=== PATIENT | male | born 1935 | race Caucasian/White ===

== ENCOUNTER 2016-09-07 13:03 | Day surgery (SDC) | payer OTHER, MEDICARE ==
[~2016-09-07] VITALS: Ht 180.3 cm; Wt 73.5 kg
[~2016-09-07 13:03] MED LIST: ANTIVERT25 MG PO; CARBIDOPA/LEVO1 EACH PO; CELEXA40 MG PO; DESYREL100 MG PO; DIOVAN HCT 11 TABLET PO; DIOVAN160 MG PO; ELIQUIS5 MG PO; HYDROCHLOROTHIA25 MG PO; LOPRESSOR50 MG PO; VIAGRA100 MG PO
[2016-09-07 14:31] LABS: HEMATOCRIT 40.9 % (38.0-50.0); MCH 32.8 PG (29.0-34.0); MCV 99.5 FL (86-99); RBC DIS.WIDTH-CV 12.6 % (11.8-14.6); RBC DIS.WIDTH-SD 46.1 % (39-53); RED BLOOD COUNT 4.11 M/uL (4.00-5.50); WHITE BLOOD COUNT 6.2 K/uL (4.1-10.2)
[2016-09-07 14:42] LABS: ANION GAP 6 MEQ/L (2-14); CHLORIDE 104 MEQ/L (99-109); POTASSIUM 3.6 MEQ/L (3.7-5.4); SAMPLE HEMOLYSIS CHECK 0; SAMPLE ICTERIC CHECK 0; SAMPLE LIPEMIA CHECK 0; SODIUM 142 MEQ/L (136-147)
[2016-09-07 14:48] LABS: GFR ESTIMATE (CALCULATED) > 59 mL/min/; GLUCOSE 103 mg/dL (70-99); UREA NITROGEN (BUN) 18 mg/dL (9-23)
[2016-09-07 15:06] LABS: MEAN PLAT.VOLUME 11.4 uM^3 (9.0-12.4); PLAT.SUFFICIENCY ADEQUATE
[2016-09-07 15:07] LABS: PLATELET COUNT 162 K/uL (156-360)
== END 2016-09-07 15:33 | disposition home or self-care (01) ==
LOC: PAIN 13:03 → SDC 14:00 → PAIN 15:33
PROVIDERS: Anesthesiology
DX: M47.26 Other spondylosis with radiculopathy, lumbar region (principal); M25.512 Pain in left shoulder; G20 Parkinson's disease; M79.1 Myalgia; F17.210 Nicotine dependence, cigarettes, uncomplicated; Z86.73 Personal history of transient ischemic attack (TIA), and cerebral infarction without residual deficits; Z79.891 Long term (current) use of opiate analgesic; Z95.0 Presence of cardiac pacemaker; Z79.01 Long term (current) use of anticoagulants; Z79.899 Other long term (current) drug therapy
CPT/HCPCS: 80048; 85027; J1030; J3010; S0020

== ENCOUNTER 2016-09-27 12:22 | Day surgery (SDC) | payer OTHER, MEDICARE ==
[~2016-09-27] VITALS: Ht 180.3 cm; Wt 72.6 kg
== END 2016-09-27 14:33 | disposition home or self-care (01) ==
LOC: PAIN 12:22
DX: M47.26 Other spondylosis with radiculopathy, lumbar region (principal); F41.9 Anxiety disorder, unspecified; M79.1 Myalgia; I48.91 Unspecified atrial fibrillation; Z95.0 Presence of cardiac pacemaker; G89.29 Other chronic pain; M19.90 Unspecified osteoarthritis, unspecified site; F17.200 Nicotine dependence, unspecified, uncomplicated
CPT/HCPCS: J1030; J2250; J3010; S0020

== ENCOUNTER 2016-11-01 12:37 | Day surgery (SDC) | payer OTHER, MEDICARE ==
[~2016-11-01] VITALS: Ht 180.3 cm; Wt 73.5 kg
[~2016-11-01 12:37] MED LIST changes: +CLINORIL200 MG PO; +NEURONTIN300 MG PO; +ULTRAM50 MG PO
== END 2016-11-01 14:55 | disposition home or self-care (01) ==
LOC: PAIN 12:37
DX: M47.26 Other spondylosis with radiculopathy, lumbar region (principal); M54.5 Low back pain; M25.512 Pain in left shoulder; G89.29 Other chronic pain; I10 Essential (primary) hypertension; I48.91 Unspecified atrial fibrillation; M79.1 Myalgia; Z95.0 Presence of cardiac pacemaker; F17.210 Nicotine dependence, cigarettes, uncomplicated; Z79.891 Long term (current) use of opiate analgesic
CPT/HCPCS: J1030; J3010; S0020

== ENCOUNTER 2016-12-10 13:18 | Inpatient (IN) | payer OTHER, MEDICARE ==
[~2016-12-10] VITALS: Ht 182.9 cm; Wt 72.9 kg
[~2016-12-10 13:18] MED LIST changes: +DESYREL 150 MG150 MG PO; -DESYREL100 MG PO
[2016-12-10 14:14] LABS: EOSINOPHIL (%) 0.2 % (0-5); IMMATURE GRANULOCYTE (%) 0.5 % (0.0-0.7); IMMATURE GRANULOCYTE COUNT 0.1 K/uL; INSTRUMENT ABS NEUTROPHIL CT 9.8 K/uL; LYMPHOCYTE COUNT 1.1 K/uL (1.0-2.8); MCH 33.3 PG (29.0-34.0); MCHC 33.6 G/DL (30.0-36.0); MCV 99.2 FL (86-99); MEAN PLAT.VOLUME 11.5 uM^3 (9.0-12.4); MONOCYTE (%) 5.2 % (3-12); MONOCYTE COUNT 0.6 K/uL (0-0.8); NEUTROPHIL (%) 84.3 % (45-76); NEUTROPHIL COUNT 9.8 K/uL (1.8-6.4); PLATELET COUNT 191 K/uL (156-360); RBC DIS.WIDTH-CV 12.4 % (11.8-14.6); RBC DIS.WIDTH-SD 46.3 % (39-53); RED BLOOD COUNT 3.93 M/uL (4.00-5.50); WHITE BLOOD COUNT 11.6 K/uL (4.1-10.2)
[2016-12-10 14:19] LABS: INTER. NORMALIZED RATIO 1.5; PROTHROMBIN TIME 16.6 SEC (10.2-12.9)
[2016-12-10 14:22] LABS: CHLORIDE 103 mEq/L (99-109); POTASSIUM 4.2 mEq/L (3.7-5.4); PTT 34.5 SEC (25-37); SODIUM 141 mEq/L (136-147)
[2016-12-10 14:24] LABS: GLUCOSE 115 mg/dL (70-99)
[2016-12-10 14:25] LABS: ANION GAP 9 MEQ/L (2-14)
[2016-12-10 14:26] LABS: TOTAL BILIRUBIN 0.9 mg/dL (0.0-1.0)
[2016-12-10 14:27] LABS: ALKALINE PHOSPHATASE 46 IU/L (3-129)
[2016-12-10 14:28] LABS: GFR ESTIMATE (CALCULATED) 57 mL/min/
[2016-12-10 14:29] LABS: UREA NITROGEN (BUN) 55 mg/dL (9-23)
[2016-12-10] MEDS ORDERED: ELIQUIS5 MG PO (17:48)
[2016-12-10] MEDS ORDERED: CALCIUM 600 +1 EA12 PO (17:49)
[2016-12-10] MEDS ORDERED: VIAGRA100 MG PO (17:50)
[2016-12-10] MEDS ORDERED: ZOCOR40 MG PO (17:51)
[2016-12-10] MEDS ORDERED: FOSAMAX70 MG PO (17:53)
[2016-12-10 19:28] LABS: HEMATOCRIT 33.1 % (38.0-50.0); MCV 100.9 FL (86-99)
[2016-12-10 19:39] VITALS: BP 115/61
[2016-12-10 23:26] VITALS: BP 108/55
[2016-12-11] VITALS (7 sets, daily range): BP systolic 111–141; BP diastolic 57–74
[2016-12-11 00:36] LABS: HEMATOCRIT 31.6 % (38.0-50.0); MCV 100.3 FL (86-99)
[2016-12-11 05:50] LABS: EOSINOPHIL (%) 1.1 % (0-5); EOSINOPHIL COUNT 0.1 K/uL (0-0.3); HEMATOCRIT 30.8 % (38.0-50.0); IMMATURE GRANULOCYTE (%) 0.2 % (0.0-0.7); INSTRUMENT ABS NEUTROPHIL CT 4.2 K/uL; LYMPHOCYTE COUNT 1.6 K/uL (1.0-2.8); MCH 34.5 PG (29.0-34.0); MCHC 34.4 G/DL (30.0-36.0); MCV 100.3 FL (86-99); MEAN PLAT.VOLUME 11.7 uM^3 (9.0-12.4); MONOCYTE (%) 6.2 % (3-12); MONOCYTE COUNT 0.4 K/uL (0-0.8); NEUTROPHIL (%) 66.6 % (45-76); NEUTROPHIL COUNT 4.2 K/uL (1.8-6.4); PLATELET COUNT 163 K/uL (156-360); RBC DIS.WIDTH-CV 12.7 % (11.8-14.6); RBC DIS.WIDTH-SD 46.6 % (39-53); WHITE BLOOD COUNT 6.3 K/uL (4.1-10.2)
[2016-12-11 05:52] LABS: RED BLOOD COUNT 3.07 M/uL (4.00-5.50)
[2016-12-11 06:10] LABS: ANION GAP 5 MEQ/L (2-14); CHLORIDE 107 MEQ/L (99-109); GFR ESTIMATE (CALCULATED) > 59 mL/min/; GLUCOSE 94 mg/dL (70-99); POTASSIUM 3.8 MEQ/L (3.7-5.4); SAMPLE HEMOLYSIS CHECK 0; SAMPLE ICTERIC CHECK 0; SAMPLE LIPEMIA CHECK 0; SODIUM 144 MEQ/L (136-147); UREA NITROGEN (BUN) 44 mg/dL (9-23)
[2016-12-11 07:06] LABS: POINT-OF-CARE METER ID UU14208750
[2016-12-11 13:16] LABS: HEMATOCRIT 33.7 % (38.0-50.0); MCV 101.5 FL (86-99)
[2016-12-11 13:19] LABS: IRON 129 MCG/DL (35-150)
[2016-12-11 13:20] LABS: IMM.RETIC FRACTION 13.3 % (3-19); RETIC HGB EQUIVALENT 37.1 (28-36); RETICULOCYTE COUNT 1.4 % (0.5-1.8)
[2016-12-11 13:36] LABS: FERRITIN 120 NG/ML (22-322)
[2016-12-12 03:52] VITALS: BP 121/55
[2016-12-12 06:23] LABS: EOSINOPHIL COUNT 0.1 K/uL (0-0.3); HEMATOCRIT 31.1 % (38.0-50.0); IMMATURE GRANULOCYTE (%) 0.3 % (0.0-0.7); INSTRUMENT ABS NEUTROPHIL CT 4.7 K/uL; LYMPHOCYTE COUNT 1.6 K/uL (1.0-2.8); MCH 33.8 PG (29.0-34.0); MCHC 34.1 G/DL (30.0-36.0); MEAN PLAT.VOLUME 11.1 uM^3 (9.0-12.4); MONOCYTE (%) 7.8 % (3-12); MONOCYTE COUNT 0.5 K/uL (0-0.8); NEUTROPHIL (%) 68.1 % (45-76); NEUTROPHIL COUNT 4.7 K/uL (1.8-6.4); PLATELET COUNT 171 K/uL (156-360); RBC DIS.WIDTH-CV 12.2 % (11.8-14.6); RBC DIS.WIDTH-SD 44.1 % (39-53); RED BLOOD COUNT 3.14 M/uL (4.00-5.50); WHITE BLOOD COUNT 6.9 K/uL (4.1-10.2)
[2016-12-12 06:46] LABS: ALKALINE PHOSPHATASE 39 IU/L (3-129); ANION GAP 6 MEQ/L (2-14); CHLORIDE 106 MEQ/L (99-109); GFR ESTIMATE (CALCULATED) > 59 mL/min/; GLUCOSE 90 mg/dL (70-99); POTASSIUM 3.7 MEQ/L (3.7-5.4); SAMPLE HEMOLYSIS CHECK 0; SAMPLE ICTERIC CHECK 0; SAMPLE LIPEMIA CHECK 0; SODIUM 144 MEQ/L (136-147); TOTAL BILIRUBIN 0.8 MG/DL (0.0-1.0); UREA NITROGEN (BUN) 28 mg/dL (9-23)
[2016-12-12 07:15] VITALS: BP 126/71
[2016-12-12] MEDS ORDERED: LOPRESSOR25 MG PO (08:43)
[2016-12-12] MEDS ORDERED: NICOTINE PATCH1 EAC2 TD (08:43)
== END 2016-12-12 10:30 | disposition home or self-care (01) | DRG 378 ==
LOC: EME 13:18 → EDOF 16:30 → 2EAST 16:30 → ENRESERV 16:32 → 2EAST 18:55
PROVIDERS: Emergency Medicine; Hospitalist; Internal Medicine Gastroenterology
PROC: 0DJ08ZZ Inspection of Upper Intestinal Tract, Via Natural or Artificial Opening Endoscopic (ICD-10-PCS; principal; 2016-12-11)
DX: K25.4 Chronic or unspecified gastric ulcer with hemorrhage (principal); K44.9 Diaphragmatic hernia without obstruction or gangrene; Q27.33 Arteriovenous malformation of digestive system vessel; G20 Parkinson's disease; F17.200 Nicotine dependence, unspecified, uncomplicated; I48.2 Chronic atrial fibrillation; K22.2 Esophageal obstruction; Z79.01 Long term (current) use of anticoagulants; D68.9 Coagulation defect, unspecified; D64.9 Anemia, unspecified; I10 Essential (primary) hypertension; I95.9 Hypotension, unspecified; Z95.0 Presence of cardiac pacemaker; I25.10 Atherosclerotic heart disease of native coronary artery without angina pectoris
CPT/HCPCS: 71010; 80048; 80053; 81003; 82607; 82728; 82746; 82948; 83540; 84466; 85014; 85018; 85025; 85027; 85045; 85610; 85730; 86900; 86901; 93005; 99281; 99284; C9113; J7030

== ENCOUNTER 2016-12-30 11:59 | Day surgery (SDC) | payer OTHER, MEDICARE ==
[~2016-12-30] VITALS: Ht 180.3 cm; Wt 74.8 kg
[~2016-12-30 11:59] MED LIST changes: +ALEVE220 MG PO; +CALCIUM 600 +1 EA12 PO; +FOSAMAX70 MG PO; +LOPRESSOR25 MG PO; +METOPROLOL TART50 MG PO; +NICOTINE PATCH1 EAC2 TD; +ZOCOR40 MG PO
== END 2016-12-30 13:46 | disposition home or self-care (01) ==
LOC: PAIN 11:59 → SDC 14:00 → PAIN 14:00
DX: M47.26 Other spondylosis with radiculopathy, lumbar region (principal); M54.5 Low back pain; M79.1 Myalgia; M25.512 Pain in left shoulder; I10 Essential (primary) hypertension; I45.10 Unspecified right bundle-branch block; I48.2 Chronic atrial fibrillation; Z86.73 Personal history of transient ischemic attack (TIA), and cerebral infarction without residual deficits; F17.200 Nicotine dependence, unspecified, uncomplicated; Z79.891 Long term (current) use of opiate analgesic
CPT/HCPCS: J1030; J2250; J3010; S0020

== ENCOUNTER 2017-08-22 12:39 | Day surgery (SDC) | payer OTHER, MEDICARE ==
[~2017-08-22] VITALS: Ht 182.9 cm; Wt 74.8 kg
[~2017-08-22 12:39] MED LIST changes: +ELIQUIS2.5 MG PO; +HYDROCODON-ACE1 EAC8 PO
== END 2017-08-22 14:55 | disposition home or self-care (01) ==
LOC: PAIN 12:39 → SDC 13:15 → PAIN 13:15
DX: M54.16 Radiculopathy, lumbar region (principal); M46.1 Sacroiliitis, not elsewhere classified; M47.816 Spondylosis without myelopathy or radiculopathy, lumbar region; M51.26 Other intervertebral disc displacement, lumbar region; M48.061 Spinal stenosis, lumbar region without neurogenic claudication; F17.200 Nicotine dependence, unspecified, uncomplicated; Z79.01 Long term (current) use of anticoagulants
CPT/HCPCS: J1100

== ENCOUNTER 2017-09-29 11:01 | Day surgery (SDC) | payer OTHER, MEDICARE ==
[~2017-09-29] VITALS: Ht 182.9 cm; Wt 77.1 kg
[~2017-09-29 11:01] MED LIST changes: -DESYREL 150 MG150 MG PO; +TRAZODONE HCL50 MG PO
== END 2017-09-29 12:25 | disposition home or self-care (01) ==
LOC: PAIN 11:01 → SDC 11:30 → PAIN 12:25
DX: M47.816 Spondylosis without myelopathy or radiculopathy, lumbar region (principal); M51.26 Other intervertebral disc displacement, lumbar region; M54.16 Radiculopathy, lumbar region; M99.83 Other biomechanical lesions of lumbar region; M48.061 Spinal stenosis, lumbar region without neurogenic claudication; F17.200 Nicotine dependence, unspecified, uncomplicated; M46.1 Sacroiliitis, not elsewhere classified; Z95.0 Presence of cardiac pacemaker; Z79.01 Long term (current) use of anticoagulants
CPT/HCPCS: J1030; J1100; J2250; S0020

== ENCOUNTER 2017-10-24 11:52 | Day surgery (SDC) | payer OTHER, MEDICARE ==
[~2017-10-24] VITALS: Ht 180.3 cm; Wt 78.5 kg
[~2017-10-24 11:52] MED LIST changes: +LORTAB 7.5-3251 EACH PO
== END 2017-10-24 14:26 | disposition home or self-care (01) ==
LOC: PAIN 11:52 → SDC 14:30
PROC: 3E0T3TZ Introduction of Destructive Agent into Peripheral Nerves and Plexi, Percutaneous Approach (ICD-10-PCS; principal; 2017-10-24)
PROC: BR161ZZ Fluoroscopy of Lumbar Facet Joint(s) using Low Osmolar Contrast (ICD-10-PCS; principal; 2017-10-24)
DX: M47.816 Spondylosis without myelopathy or radiculopathy, lumbar region (principal); F17.200 Nicotine dependence, unspecified, uncomplicated; M99.83 Other biomechanical lesions of lumbar region; M48.061 Spinal stenosis, lumbar region without neurogenic claudication; M51.26 Other intervertebral disc displacement, lumbar region; Z95.0 Presence of cardiac pacemaker; G20 Parkinson's disease
CPT/HCPCS: J1030; S0020

== ENCOUNTER 2017-11-10 09:49 | Day surgery (SDC) | payer OTHER, MEDICARE ==
[~2017-11-10] VITALS: Ht 182.9 cm; Wt 74.8 kg
== END 2017-11-10 12:10 | disposition home or self-care (01) ==
LOC: PAIN 09:49 → SDC 10:30 → PAIN 12:10
DX: G57.02 Lesion of sciatic nerve, left lower limb (principal); M47.816 Spondylosis without myelopathy or radiculopathy, lumbar region; M46.1 Sacroiliitis, not elsewhere classified; M51.16 Intervertebral disc disorders with radiculopathy, lumbar region; M48.061 Spinal stenosis, lumbar region without neurogenic claudication; M79.1 Myalgia; I25.10 Atherosclerotic heart disease of native coronary artery without angina pectoris; E11.9 Type 2 diabetes mellitus without complications; I10 Essential (primary) hypertension; F17.200 Nicotine dependence, unspecified, uncomplicated; Z79.891 Long term (current) use of opiate analgesic; Z79.01 Long term (current) use of anticoagulants
CPT/HCPCS: J1030; J2250; S0020